=== PATIENT | female | born 2000 | race Caucasian/White ===

== ENCOUNTER 2025-03-31 19:06 | Emergency (ER) | payer OTHER, BC, SELFPAY ==
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
[2025-03-31 19:13] VITALS: BP 124/64; PULSE 79; RESP 16; TEMP 36.9; O2SAT 100
--- OUTSIDE RECORDS SUMMARY | 2025-03-31 19:43 | XMS_ITS | Clinical Summary ---
Author Organization [facility] Address [address] [place] [address] Phone Care Team Providers Care Sugar Controller Name Role Phone Tracy Miller Primary Care Provider [phone]- [phone] Allergies No known active allergies Social History Tobacco Use Types Packs/Day Years Used Date Smoking Tobacco: Never Assessed Comments Unknown Sex and Gender Information Value Date Recorded Sex Assigned at Not on file Legal Sex Female 2:50 PM CDT Gender Identity Not on file Sexual Orientation Not on file Plan of Treatment Health Maintenance Due Date Last Done Comments Hepatitis C Virus (HCV) Screening 2002 TdaP Immunization 2002 Human Papillomavirus (HPV) Immunization (1 - 3-dose series) 2017 Meningococcal B Immunization (1 of 2 - Standard) 2018 Hepatitis B Immunization (1 of 3 - 19+ 3-dose series) 2021 SARS-COV-2 Immunization ( season) 2024 Influenza Immunization (#1) 2025 Pap Smear 11/20/2026 11/21/2023 Respiratory Syncytial Virus (RSV) Immunization (Adult) (1 - 1-dose 75+ series) 2077 Meningococcal Immunization (ACWY) Aged Out No longer eligible based on patient's age to complete this topic Pneumococcal Immunization Combined Aged Out No longer eligible based on patient's age to complete this topic Rotavirus Immunization Aged Out No lo nger eligible based on patient's age to complete this topic Insurance [facility] Care Teams Sugar Controller Relationship Specialty Start Date End Date Tracy Miller, PAC [address] [place] [id number] PCP - General Physician Wetlands Conservation Laborer 08/28/24
--- OUTSIDE RECORDS SUMMARY | 2025-03-31 19:43 | XMS_ITS | Encounter Summary ---
Author Organization [facility] Address [address] [place] [address] Phone Care Team Providers Care Digital Court Reporter Name Role Phone Tracy Miller PAC Primary Care Provider [phone]- [phone] Encounter Details Date Type Department Care Team (Latest Contact Info) Description 07/03/2024 Transcribe Orders [facility] [address] [place] [id number] Tracy Miller, PAC [address] [place] [address] Encounter for general adult medical examination without abnormal findings (Primary Dx) Social History Tobacco Use Types Packs/Day Years Used Date Smoking Tobacco: Never Assessed Comments Unknown Sex and Gender Information Value Date Recorded Sex Assigned at Not on file Legal Sex Female 2:50 PM CDT Gender Identity Not on file Sexual Orientation Not on file documented as of this encounter Plan of Treatment Not on file documented as of this encounter Results * VITAMIN B12 (08/28/2024 10:52 AM REVENUE ANALYST) VITAMIN B12 229 213 - 816 pg/mL 08/28/2024 1:06 PM REVENUE ANALYST [facility] Blood Venipuncture / Unknown 08/28/2024 10:52 AM REVENUE ANALYST 08/28/2024 10:52 AM REVENUE ANALYST us Tracy Miller PAC CHEMISTRY ORDERABLES Final Result [facility] [address] [place] [address] * THYROXINE (T4) FREE (08/28/2024 10:52 AM REVENUE ANALYST) T4 FREE 0.9 0.7 - 1.9 ng/dL 08/28/2024 12:56 PM REVENUE ANALYST [facility] Blood Venipuncture / Unknown 08/28/2024 10:52 AM REVENUE ANALYST 08/28/2024 10:52 AM REVENUE ANALYST Tracy Miller PAC CHEMISTRY ORDERABLES Final Result [facility] [address] [place] [address] * THYROID STIMULATING HORMONE (TSH) (08/28/2024 10:52 AM REVENUE ANALYST) Pathologist [facility] TSH 0.637 0.300 - 5.000 mIU/L 08/28/2024 12:56 PM REVENUE ANALYST [facility] Blood Venipuncture / Unknown 08/28/2024 10:52 AM REVENUE ANALYST 08/28/2024 10:52 AM REVENUE ANALYST us Tracy Miller PAC CHEMISTRY ORDERABLES Final Result [facility] [address] [place] [address] * LIPID PANEL (08/28/2024 10:52 AM REVENUE ANALYST) CHOLESTEROL 158 <200 mg/dL 08/28/2024 12:48 PM REVENUE ANALYST [facility] TRIGLYCERIDES 63 <150 mg/dL 08/28/2024 12:48 PM REVENUE ANALYST [facility] HDL CHOLESTEROL 59 >40 mg/dL 12:48 PM REVENUE ANALYST [facility] LDL 86 <130 mg/dL 08/28/2024 12:48 PM REVENUE ANALYST [facility] VLDL 13 10 - 50 mg/dL 08/28/2024 12:48 PM REVENUE ANALYST [facility] CHOL/HDL RATIO 2.7 0.0 - 4.4 08/28/2024 12:48 PM REVENUE ANALYST [facility] NON-HDL CHOLESTEROL 99 <130 mg/dL 08/28/2024 12:48 PM REVENUE ANALYST [facility] IS THE PATIENT REQUIRED TO BE FASTING? Yes 08/28/2024 12:48 PM REVENUE ANALYST [facility] HAS THE PATIENT BEEN FASTING? Yes 08/28/2024 12:48 PM REVENUE ANALYST [facility] Blood Venipuncture / Unknown 08/28/2024 10:52 AM REVENUE ANALYST 08/28/2024 10:52 AM REVENUE ANALYST Tracy Miller PAC CHEMISTRY ORDERABLES Final Result Performing Organization Address [facility] de Phone Number [facility] [address] [place] [address] * HEMOGLOBIN A1C W/ ESTIMATED GLUCOSE (08/28/2024 10:52 AM REVENUE ANALYST) HGB-A1C 5.3 4.0 - 6.0 % 08/28/2024 12:36 PM REVENUE ANALYST [facility] Est Average Glucose 105.4 mg/dL 08/28/2024 12:36 PM REVENUE ANALYST [facility] Blood Venipuncture / Unknown 08/28/2024 10:52 AM REVENUE ANALYST 08/28/2024 10:52 AM REVENUE ANALYST Narrative [facility] - 08/28/2024 12:36 PM REVENUE ANALYST HEMOGLOBIN A1C: DIABETIC PATIENTS: WELL-CONTROLLED: 6.2 - 7.0 INTERMEDIATE WELL-CONTROLLED: 7.0 - 9.0 POORLY-CONTROLLED: >9.0 Tracy Miller PAC CHEMISTRY ORDERABLES Final Result Performing Organization Address [facility] Co de Phone Number [facility] [address] [place] [address] * (ABNORMAL) CMP (COMPREHENSIVE METABOLIC PANEL) (08/28/2024 10:52 AM REVENUE ANALYST) SODIUM 141 136 - 145 mmol/L 08/28/2024 12:48 PM [facility] POTASSIUM 3.9 3.5 - 5.1 mmol/L 08/28/2024 12:48 PM [facility] CHLORIDE 108(H) 98 - 107 mmol/L 08/28/2024 12:48 PM [facility] CO2, VENOUS 26 22 - 30 mmol/L 08/28/2024 12:48 PM [facility] ANION GAP 10.9 <18.0 mmol/L 08/28/2024 12:48 PM [facility] GLUCOSE 82 70 - 99 mg/dL 08/28/2024 12:48 PM [facility] BUN 12 5 - 18 mg/dL 08/28/2024 12:48 PM [facility] CREATININE, BLOOD 0.83 0.60 - 1.00 mg/dL 08/28/2024 12:48 PM [facility] BUN/CREATININE RATIO 14 12 - 20 ratio 08/28/2024 12:48 PM [facility] TOTAL PROTEIN 7.3 6.3 - 8.2 g/dL 08/28/2024 12:48 PM [facility] ALBUMIN 4.2 3.5 - 5.0 g/dL 08/28/2024 12:48 PM [facility] A/G RATIO 1.4 1.0 - 2.2 08/28/2024 12:48 PM [facility] CALCIUM 9.4 8.7 - 10.5 mg/dL 08/28/2024 12:48 PM [facility] T BILI 0.4 0.2 - 1.2 mg/dL 08/28/2024 12:48 PM [facility] SGOT (AST) 16 5 - 34 U/L 08/28/2024 12:48 PM REVENUE ANALYST [facility] SGPT (ALT) 12 0 - 55 U/L 08/28/2024 12:48 PM REVENUE ANALYST [facility] ALKALINE PHOSPHATASE 67 40 - 150 U/L 08/28/2024 12:48 PM REVENUE ANALYST [facility] IS THE PATIENT REQUIRED TO BE FASTING? No 08/28/2024 12:48 PM REVENUE ANALYST [facility] GFR, ESTIMATED >60 >=60 08/28/2024 12:48 PM REVENUE ANALYST [facility] Comment: Creatinine Clearance is the preferred criteria for selecting drug dose adjustments in renally impaired patients. The GFR is provided as additional pertinent clinical information. GFR is reported in mL/min/1.73 sq m. Calculation based on the Chronic Kidney Disease Epidemiology Collaboration (CKD- EPI) equation refit without adjustment for race. GFR, EST. >60 >=60 024 12:48 PM REVENUE ANALYST [facility] GFR, EST. NONAFRICAN >60 >=60 08/28/2024 12:48 PM REVENUE ANALYST [facility] Blood Venipuncture / Unknown 08/28/2024 10:52 AM REVENUE ANALYST 08/28/2024 10:52 AM REVENUE ANALYST us Tracy CRAFT CHEMISTRY ORDERABLES Final Result Performing Organization Address City/State/[facility] Co de Phone Number [facility] [address] [place] [address] documented in this encounter Visit Diagnoses Diagnosis Encounter for general adult medical examination without abnormal findings- Primary Routine general medical examination at a health care facility documented in this encounter Care Teams Digital Court Reporter Relationship Specialty Start Date End Date Tracy Miller, PAC [address] [place] [id number] PCP - General Physician Sterile Technician 08/28/24 documented as of this encounter
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
[2025-03-31 20:50] VITALS: BP 120/72; PULSE 80; RESP 14; O2SAT 98
[2025-03-31] MEDS: KETOROLAC 30 MG/ML VIAL (*BKC) IM (20:59)
== END 2025-03-31 21:05 | disposition home or self-care (01) ==
PROVIDERS: Emergency Provider Student in an Organized Health Care Education/Training Program
DX: S49.92XA Unspecified injury of left shoulder and upper arm, initial encounter (principal); M75.52 Bursitis of left shoulder; V49.40XA Driver injured in collision with unspecified motor vehicles in traffic accident, initial encounter
CPT/HCPCS: 73030; 96372; 99283; J1885